=== PATIENT | female | born 1985 | race Caucasian/White ===

== ENCOUNTER 2018-12-23 20:22 | Emergency (ER) | payer OTHER ==
[~2018-12-23] VITALS: Ht 167.6 cm; Wt 76.7 kg
[~2018-12-23 20:22] MED LIST: ACET-2158 PO; IBUP-1542 PO
[2018-12-23 20:24] VITALS: Ht 167.6 cm; Wt 76.7 kg
[2018-12-23] MEDS ORDERED: SODIUM CHLORIDE 0.9% 1L BAG IV* STA (20:43)
[2018-12-23] MEDS ORDERED: ACETAMINOPHEN 325 MG TAB PO STA (20:43)
[2018-12-23] MEDS ORDERED: CEFEPIME 2GM/50 ML (PMX) 50 ML IVPB STA (21:00)
[2018-12-23] MEDS ORDERED: VANCOMYCIN 1 GM (PMX) 250 ML IVPB ONE (21:00)
[2018-12-23] MEDS ORDERED: KETOROLAC 15 MG INJ IV STA (23:43)
[2018-12-24 01:47] VITALS: BP 97/65; PULSE 102; RESP 14
== END 2018-12-24 02:00 | disposition home or self-care (01) ==
LOC: E/R 20:22
DX: R50.9 Fever, unspecified (principal); R13.10 Dysphagia, unspecified; R40.2142 Coma scale, eyes open, spontaneous, at arrival to emergency department; R40.2362 Coma scale, best motor response, obeys commands, at arrival to emergency department; R40.2252 Coma scale, best verbal response, oriented, at arrival to emergency department; R00.0 Tachycardia, unspecified
CPT/HCPCS: 36415; 71045; 80053; 81001; 81025; 83605; 84484; 85025; 85610; 85730; 87040; 87070; 87086; 87880; 93005; 96365; 96366; 96368; 96375; 99285; J0692; J1885; J3370; J7030